=== PATIENT | male | born 1985 | race Caucasian/White ===

== ENCOUNTER 2018-01-28 13:22 | Emergency (ER) | payer SELFPAY ==
[~2018-01-28] VITALS: Ht 190.5 cm; Wt 61.2 kg
--- NOTE | 2018-01-28 14:11 | NUR ---
Patient discharged to home in stable conditon. Written and verbal after care instructions given. Patient verbalizes understanding of instructions.
[2018-01-28 14:12] VITALS: BP 128/75
== END 2018-01-28 14:13 | disposition home or self-care (01) ==
LOC: ER 13:22
DX: M43.6 Torticollis (principal); F17.200 Nicotine dependence, unspecified, uncomplicated
CPT/HCPCS: A4663